=== PATIENT | female | born 1990 | race African-American/Black ===

== ENCOUNTER 2016-11-05 10:31 | Observation (INO) | payer OTHER ==
[~2016-11-05] VITALS: Ht 170.2 cm; Wt 57.3 kg
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
--- NOTE | ~2016-11-05 | DS ---
Discharge Summary [facility] [address] [place]. [address] NAME: BERENICE GEE : 89 STATUS : DIS Michaelle PAT#: [id number] AGE: 26 ADM/REG DATE : 11/05/16 MR#: [id number] REPORT SERV DATE: 11/07/16 DICTATED BY: YOHAN BOWERS DATE: 11/06/16 REPORT STATUS : Draft TRANSCRIBED BY: MODL DATE: 11/06/16 ADMISSION DATE: 11/05/2016 DISCHARGE DATE: 11/06/2016 DISCHARGE DIAGNOSES: 1. Lupus flare. 2. Systemic inflammatory response syndrome, resolved. 3. Elevated troponin level, stable. 4. Hypokalemia, resolved. 5. Ketonuria and proteinuria, likely transient. CONSULTANTS: None. PROCEDURES: None. HOSPITAL COURSE: This is a 26-year-old lady with a relatively recent diagnosis of lupus, who was admitted to the hospital with lupus flare. For details, please refer to my own H and P. In summary, the patient was admitted with fever and generalized fatigue, likely due to lupus flare. The patient was admitted and was treated with IV steroids. Also, at the same time, a thorough infectious workup was performed including blood cultures and urinalysis with cultures and checking of white blood cell count and procalcitonin level. The patient was also checked for influenza. The above infectious workup was all completely negative, and since admission, the patient remained afebrile with normal white blood cell count. The patient reported significant improvement of her symptoms by the next day of the hospital stay. Of note, the patient has not been started on a maintenance regimen for the treatment of lupus and thus the patient is now being discharged to home with a steroid taper as well as hydroxychloroquine as a new maintenance regimen. The patient does follow with Dr. Cruz, a addictions therapist, in town closely, and she was encouraged to continue to follow up with him. DISPOSITION: Home. DISCHARGE MEDICATIONS: 1. Medrol Dosepak. 2. Hydroxychloroquine 200 mg p.o. daily. FOLLOWUP: Please follow up with Dr. Phong Cruz in the next two to three weeks. Total of 25 minutes spent in coordinating this patient's discharge today. PETE/EDMUND Yohan Bowers MD Discharge Summary [address] [place] [address] NAME: BERENICE GEE : 89 STATUS : DIS Michaelle PAT#: [id number] AGE: 26 ADM/REG DATE : 11/05/16 MR#: [id number] REPORT SERV DATE: 11/07/16 DICTATED BY: YOHAN BOWERS DATE: 11/06/16 REPORT STATUS : Draft TRANSCRIBED BY: EDMUND DATE: 11/06/16 / [id number] CC: Yohan Bowers MD
[2016-11-05] MEDS ORDERED: ACET500CAP PO (11:09)
[2016-11-05] MEDS ORDERED: BACTRIM DS1 TAB PO (11:09)
[2016-11-05 12:02] LABS: BASOPHILS 0.2 %; BASOPHILS ABSOLUTE 0.01 10/3/uL (0.0-0.16); EOSINOPHILS 0 %; HEMATOCRIT 38.9 % (36.0-48.0); HEMOGLOBIN 12.8 g/dL (12.0-16.0); IMMATURE GRANULOCYTES 0.2 %; IMMATURE GRANULOCYTES ABSOLUTE 0.01 10/3/uL (0.0-0.11); LYMPHOCYTES 18.5 %; LYMPHOCYTES ABSOLUTE 1.05 10/3/uL (0.67-4.30); MEAN CORPUS HGB CONC 32.9 g/dL (32.0-36.0); MEAN CORPUSCULAR VOLUME 88.2 fL (80-100); MEAN PLATELET VOLUME 12.6 fL (9.2-13.0); MONOCYTES 14.2 %; MONOCYTES ABSOLUTE 0.81 10/3/uL (0.21-1.20); NEUTROPHILS 66.9 %; NEUTROPHILS ABSOLUTE 3.81 10/3/uL (2.02-8.40); PLATELET COUNT 116 10/3/uL (150-400); RBC DISTRIBUTION WIDTH 13.2 % (12.0-16.0); RED CELL COUNT 4.41 10/6/uL (4.0-5.6); WHITE BLOOD CELLS 5.7 10/3/uL (4.5-10.5)
[2016-11-05 12:03] LABS: MANUAL DIFF NO %
[2016-11-05 12:11] LABS: INTERNATIONAL NORMAL RATI 1.2 UNITS (-); PROTIME (NOT ORD) 15.1 SEC (12.0-14.5)
[2016-11-05 12:17] LABS: A/G RATIO 0.9 (0.7-1.9); ALBUMIN 3.9 G/DL (3.5-5.0); ALKALINE PHOSPHATASE 54 U/L (45-117); BUN (BLOOD UREA NITROGEN) 6 MG/DL (6-23); CALCIUM, SERUM 8.3 MG/DL (8.5-10.4); CHLORIDE, SERUM 106 MMOL/L (96-112); CO2 (CARBON DIOXIDE) 26 MMOL/L (24-34); CREATININE 0.95 MG/DL (0.55-1.02); GFR AFRICAN AMERICAN 96 ML/MIN (>=60); GFR NON AFRICAN AMERICAN 83 ML/MIN (>=60); GLOBULIN 4.2 G/DL (2.5-4.1); GLUCOSE, SERUM 87 MG/DL (60-99); POTASSIUM, SERUM 3.2 MMOL/L (3.5-5.3); SGPT(ALT) 20 U/L (5-65); SODIUM, SERUM 141 MMOL/L (135-148); TOTAL BILIRUBIN 0.8 MG/DL (0-1.2); TOTAL PROTEIN 8.1 G/DL (6.0-8.5)
[2016-11-05 12:19] LABS: SGOT(AST) 36 U/L (5-40)
[2016-11-05 12:20] LABS: LACTATE 1.4 MMOL/L (0.3-2.4)
[2016-11-05 12:30] LABS: PROCALCITONIN <0.05 ng/mL (<0.5)
[2016-11-05 13:26] LABS: WBC (NOT ORDERED) (RFLEX) 0 (0-5)
[2016-11-05 13:31] LABS: TROPONIN I 0.06 NG/ML (<0.05)
[2016-11-05 13:37] LABS: ASCORBIC ACID (UR NOT ORDER) 40 (NEG); BILIRUBIN, URINE NEGATIVE (NEG); ER URINALYSIS TAT 0 Hrs 11 Mins; KETONE, URINE 80 MG/DL (NEG); LEUKOCYTE ESTERASE(NOT OR NEG (NEG); NITRITE (URINE) NEG (NEG)
[2016-11-05 21:43] LABS: INFLUENZA A SCREEN NEGATIVE (NEGATIVE); INFLUENZA B SCREEN NEGATIVE (NEGATIVE)
[2016-11-06 02:05] LABS: POTASSIUM, SERUM 4.5 MMOL/L (3.5-5.3)
[2016-11-06 02:08] LABS: TROPONIN I 0.05 NG/ML (<0.05)
[2016-11-06 05:47] LABS: BASOPHILS 0 %; EOSINOPHILS 0 %; HEMATOCRIT 35.9 % (36.0-48.0); HEMOGLOBIN 11.6 g/dL (12.0-16.0); LYMPHOCYTES 30.5 %; MEAN CORPUS HGB CONC 32.3 g/dL (32.0-36.0); MEAN CORPUSCULAR HEMOGLOB 28.4 pg (26.0-34.0); MEAN CORPUSCULAR VOLUME 87.8 fL (80-100); MEAN PLATELET VOLUME 12.6 fL (9.2-13.0); MONOCYTES 7.5 %; MONOCYTES ABSOLUTE 0.22 10/3/uL (0.21-1.20); NEUTROPHILS ABSOLUTE 1.83 10/3/uL (2.02-8.40); PLATELET COUNT 114 10/3/uL (150-400); RBC DISTRIBUTION WIDTH 13.6 % (12.0-16.0); RED CELL COUNT 4.09 10/6/uL (4.0-5.6)
[2016-11-06 05:53] LABS: MANUAL DIFF NO %
[2016-11-06 06:08] LABS: A/G RATIO 0.8 (0.7-1.9); ALKALINE PHOSPHATASE 43 U/L (45-117); BUN (BLOOD UREA NITROGEN) 7 MG/DL (6-23); CALCIUM, SERUM 8.2 MG/DL (8.5-10.4); CHLORIDE, SERUM 110 MMOL/L (96-112); CO2 (CARBON DIOXIDE) 25 MMOL/L (24-34); CREATININE 0.56 MG/DL (0.55-1.02); GFR AFRICAN AMERICAN 150 ML/MIN (>=60); GFR NON AFRICAN AMERICAN 130 ML/MIN (>=60); GLOBULIN 3.7 G/DL (2.5-4.1); GLUCOSE, SERUM 135 MG/DL (60-99); POTASSIUM, SERUM 4.4 MMOL/L (3.5-5.3); SGOT(AST) 24 U/L (5-40); SGPT(ALT) 17 U/L (5-65); SODIUM, SERUM 140 MMOL/L (135-148); TOTAL BILIRUBIN 0.6 MG/DL (0-1.2); TOTAL PROTEIN 6.7 G/DL (6.0-8.5)
[2016-11-06] MEDS ORDERED: MEDROLPAK4 PO (12:32)
[2016-11-06] MEDS ORDERED: PLAQ200B PO (12:33)
== END 2016-11-06 13:43 | disposition home or self-care (01) ==
LOC: ER 10:31 → CDU1 16:09 → CDU2 16:21
PROVIDERS: Internal Medicine; Student in an Organized Health Care Education/Training Program
DX: M32.9 Systemic lupus erythematosus, unspecified (principal); R65.10 Systemic inflammatory response syndrome (SIRS) of non-infectious origin without acute organ dysfunction; E87.6 Hypokalemia; R80.8 Other proteinuria; Z79.899 Other long term (current) drug therapy
CPT/HCPCS: 71010; 71275; 80053; 81001; 83605; 84132; 84145; 84484; 85025; 85610; 85730; 87040; 87804; 93005; 96374; 96375; 96376; 99285; A9270-GY; G0378; J2405; J2920; J2930; Q9967